=== PATIENT | female | born 1955 | race Caucasian/White ===

== ENCOUNTER → 2017-05-12 | Outpatient (CLI) | payer OTHER ==
[~2017-05-12] VITALS: Ht 162.6 cm; Wt 83.7 kg
[2017-05-12 13:34] VITALS: BP 153/84; PULSE 68; Ht 162.6 cm; Wt 83.7 kg
== END | disposition home or self-care (01) ==
LOC: C.NEUR 13:05
PROVIDERS: ATTEND Internal Medicine Pulmonary Disease
DX: G47.00 Insomnia, unspecified (principal)